=== PATIENT | female | born 1990 | race Caucasian/White ===

== ENCOUNTER 2022-10-17 22:27 | Inpatient (IN) | payer OTHER ==
[~2022-10-17] VITALS: Ht 167.6 cm; Wt 78.5 kg
[2022-10-18] MEDS ORDERED: LR 500 ML IV ONE ×2 (00:15→09:00)
[2022-10-18] MEDS ORDERED: LR 1,000 ML IV ONE (00:15)
[2022-10-18] MEDS ORDERED: NALBUPHINE HCL 10 MG/ML AMP IVP PRN (00:15)
[2022-10-18] MEDS ORDERED: TERBUTALINE SULFATE 1 MG/ML VIAL SUBCUT ONE (00:15)
[2022-10-18] MEDS ORDERED: LR 1,000 ML IV SCH (00:15)
[2022-10-18] MEDS ORDERED: NALBUPHINE HCL 10 MG/ML AMP IM PRN (00:15)
[2022-10-18 00:53] LABS: BASOPHILS # (AUTO) 0.1 K/uL (0.0-0.2); BASOPHILS % (AUTO) 0.5 % (0.0-2.0); EOSINOPHILS % (AUTO) 0.3 % (0.0-4.0); HEMATOCRIT 34.2 % (36-48); HEMOGLOBIN 11.5 g/dL (12.0-16.0); LYMPHOCYTES # (AUTO) 1.4 K/uL (1.0-5.5); MEAN CORPUSCULAR HEMOGLOBIN 29 pg (27-31); MEAN CORPUSCULAR HGB CONC 34 % (32-36); MEAN CORPUSCULAR VOLUME 87 fL (79.0-98.0); MONOCYTES # (AUTO) 0.7 K/uL (0.0-1.0); MONOCYTES % (AUTO) 6.1 % (1.7-9.3); NEUTROPHILS # (AUTO) 9.2 K/uL (1.8-7.7); NEUTROPHILS % (AUTO) 81.1 % (40.0-70.0); PLATELET COUNT (AUTO) 214 K/uL (130-430); RED BLOOD CELL COUNT(AUTO) 3.93 MIL/uL (4.2-6.2); RED CELL DISTRIBUTION WIDTH 14.1 % (9.0-15.0); WHITE BLOOD COUNT (AUTO) 11.4 K/uL (4.8-10.8)
[2022-10-18 02:11] VITALS: BP_SYST 120
[2022-10-18] MEDS ORDERED: NALOXONE HCL 0.4 MG/ML AMP (NARCAN) ONE ×2 (08:38→22:38)
[2022-10-18] MEDS ORDERED: LIGHT MINERAL OIL 10 ML VIAL MC ONE ×2 (08:38→22:37)
[2022-10-18] MEDS ORDERED: LIDOCAINE PF 1% 30ML(POUR BTL) INJ ONE ×2 (08:38→22:38)
[2022-10-18] MEDS ORDERED: FENT2mCg/mL-ROPIVA0.2%/NS EPID 200 ML EP SCH (09:00)
[2022-10-18] MEDS ORDERED: ePHEDrine sulfate 50 MG/ML VIAL IVP PRN (09:00)
[2022-10-18] MEDS ORDERED: ROPIVACAINE HCL/PF 0.2% 100 ML EP SCH (09:00)
[2022-10-18] MEDS ORDERED: fentaNYL CITRATE/PF 100 MCG/2 ML AMP ONE (09:14)
[2022-10-18] MEDS ORDERED: ROPIVACAINE HCL/PF 0.2% 200 ML ONE (09:14)
[2022-10-19] MEDS ORDERED: HYDROcodone/ACETAMIN 5-325 MG TAB (NORCO/ VICODIN) PO PRN (01:00)
[2022-10-19] MEDS ORDERED: WITCH HAZEL LEAF 1 MED.PAD MED.PAD TP PRN (01:00)
[2022-10-19] MEDS ORDERED: DERMOPLAST SPRAY TP PRN (01:00)
[2022-10-19] MEDS ORDERED: METHYLERGONOVINE MALEATE 0.2 MG TABLET PO PRN (01:00)
[2022-10-19] MEDS ORDERED: LANOLIN 7 GM OINT. TP PRN (01:00)
[2022-10-19] MEDS ORDERED: HYDROCORTISONE 0.5% CREAM 28.4 GM CREAM.GM. TP PRN (01:00)
[2022-10-19] MEDS ORDERED: ANUSOL 1 EA SUPP.RECT (PREPARATION H) RC PRN (01:00)
[2022-10-19] MEDS ORDERED: OXYCODONE/ACETAMINOPHEN 5-325 TABLET PO PRN ×2 (01:00)
[2022-10-19] MEDS ORDERED: NALOXONE HCL 0.4 MG/ML AMP (NARCAN) IVP PRN (01:00)
[2022-10-19] MEDS: IBUPROFEN 600 MG TABLET PO SCH ×4 (01:10→18:04)
[2022-10-19] MEDS ORDERED: IBUPROFEN 600 MG TABLET PO ONE (01:15)
[2022-10-19 06:59] LABS: BASOPHILS % (AUTO) 0.2 % (0.0-2.0); EOSINOPHILS % (AUTO) 0.1 % (0.0-4.0); HEMATOCRIT 31.1 % (36-48); HEMOGLOBIN 10.5 g/dL (12.0-16.0); LYMPHOCYTES # (AUTO) 1.2 K/uL (1.0-5.5); LYMPHOCYTES % (AUTO) 6.2 % (20.5-51.5); MEAN CORPUSCULAR HEMOGLOBIN 29 pg (27-31); MEAN CORPUSCULAR HGB CONC 34 % (32-36); MEAN CORPUSCULAR VOLUME 87 fL (79.0-98.0); MONOCYTES % (AUTO) 4.9 % (1.7-9.3); NEUTROPHILS # (AUTO) 17.8 K/uL (1.8-7.7); NEUTROPHILS % (AUTO) 88.6 % (40.0-70.0); PLATELET COUNT (AUTO) 206 K/uL (130-430); RED BLOOD CELL COUNT(AUTO) 3.57 MIL/uL (4.2-6.2); RED CELL DISTRIBUTION WIDTH 14.6 % (9.0-15.0); WHITE BLOOD COUNT (AUTO) 20.1 K/uL (4.8-10.8)
[2022-10-19] MEDS: DOCUSATE SODIUM 100 MG CAPSULE PO SCH (09:00)
[2022-10-19] MEDS ORDERED: SENNOSIDES/DOCUSATE SODIUM 1 TAB TABLET(SENOKOT-S) PO SCH (21:00)
[2022-10-20] MEDS: IBUPROFEN 600 MG TABLET PO SCH ×2 (00:32→06:26)
[2022-10-20] MEDS: DOCUSATE SODIUM 100 MG CAPSULE PO SCH (08:53)
== END 2022-10-20 10:45 | disposition home or self-care (01) | DRG 807 ==
LOC: SPU 22:27 → OBSVTOIN 23:42
PROVIDERS: ADMIT Obstetrics & Gynecology; ATTEND Obstetrics & Gynecology
PROC: 10E0XZZ Delivery of Products of Conception, External Approach (ICD-10-PCS; principal; 2022-10-18)
DX: O69.81X0 Labor and delivery complicated by cord around neck, without compression, not applicable or unspecified (principal); Z37.0 Single live birth; Z3A.39 39 weeks gestation of pregnancy
CPT/HCPCS: 36415; 81002; 85025; 86592; 86886; 86900; 86901; 94760; G0378; J2001; J2310; J3010